=== PATIENT | male | born 1955 | race African-American/Black ===

== ENCOUNTER 2017-09-09 11:04 | Emergency (ER) | payer SELFPAY ==
[~2017-09-09] VITALS: Ht 177.8 cm; Wt 107.0 kg
[2017-09-09 12:15] LABS: BASOPHILS % 0.9 % (0.0-2.0); HEMATOCRIT. 45.9 % (42.0-52.0); HEMOGLOBIN. 14.9 g/dL (14.0-18.0); LYMPHOCYTES % 35.2 % (20.0-50.0); MEAN CORPUSCULAR HEMOGLOBIN 22.5 pg (28.0-32.0); MEAN CORPUSCULAR VOLUME 69.2 fL (80.0-94.0); MEAN PLATELET VOLUME 8.2 fl (7.4-10.4); MONOCYTES % 7.9 % (2.0-8.0); PLATELET 259 x1000/uL (130-400); RED BLOOD CELL COUNT 6.63 mill/uL (4.7-6.1); RED CELL DISTRIBUTION WIDTH 17.3 % (11.6-14.6)
[2017-09-09 12:20] LABS: CHLORIDE 107 mEq/L (98-107)
[2017-09-09 12:21] LABS: PROTHROMBIN TIME 10.6 sec (9.4-11.6)
[2017-09-09 12:38] LABS: PLATELET ESTIMATE NORMAL
[2017-09-09 14:51] VITALS: BP 134/76
== END 2017-09-09 14:55 | disposition home or self-care (01) ==
LOC: ER 11:04
DX: E11.649 Type 2 diabetes mellitus with hypoglycemia without coma (principal); R53.83 Other fatigue; F17.200 Nicotine dependence, unspecified, uncomplicated; Z86.73 Personal history of transient ischemic attack (TIA), and cerebral infarction without residual deficits
CPT/HCPCS: 36415; 71045; 80053; 83880; 84484; 85025; 85610; 93005; 99285; Z7610